=== PATIENT | male | born 1960 | race Two or more races ===

== ENCOUNTER 2017-07-13 11:41 | Inpatient (IN) | payer OTHER ==
[~2017-07-13] VITALS: Ht 175.3 cm; Wt 83.3 kg
[2017-07-13] MEDS ORDERED: CLINDAMYCIN PMX 600MG/50ML 50 ML IVPB ONE (12:30)
[2017-07-13] MEDS ORDERED: SODIUM CHLORIDE FLUSH 10ML SYR IVF ONE (12:30)
[2017-07-13] MEDS ORDERED: SODIUM CHLORIDE 0.9% 1,000ML IVBOLUS ONE ×2 (12:30→17:30)
[2017-07-13] MEDS ORDERED: CLINDAMYCIN PMX 600MG/50ML 50 ML ONE (12:32)
[2017-07-13 12:33] LABS: BASOPHILS # (AUTO) 0.02 x10^3/uL (0-0.1); BASOPHILS % (AUTO) 0 % (0-1); EOSINOPHILS # (AUTO) 0.17 x10^3/uL (0-0.4); EOSINOPHILS % (AUTO) 3 % (1-7); LYMPHOCYTES % (AUTO) 31 % (22-44); MD NO; MEAN CORPUSCULAR HEMOGLOBIN 30.2 pg (27.5-34.5); MEAN CORPUSCULAR HGB CONC 33.6 g/dL (33.2-36.2); MEAN CORPUSCULAR VOLUME 89.7 fL (81-97); MONOCYTES # (AUTO) 0.84 x10^3/uL (0.2-0.8); MONOCYTES % (AUTO) 14 % (2-9); NEUTROPHILS # (AUTO) 3.25 x10^3/uL (1.8-6.8); NEUTROPHILS % (AUTO) 53 % (42-75); PLATELET COUNT 197 x10^3/uL (130-400); RED BLOOD COUNT 5.33 x10^6/uL (4.38-5.82); RED CELL DISTRIBUTION WIDTH 14.7 % (9.4-14.8)
[2017-07-13 12:46] LABS: ALANINE AMINOTRANSFERASE 42 U/L (12-78); ALBUMIN 3.6 g/dL (3.4-5.0); ANION GAP 12 mmol/L (5-15); CALCIUM 9.5 mg/dL (8.5-10.1); CHLORIDE 101 mmol/L (98-107); CREATININE 1.33 mg/dL (0.7-1.3)
[2017-07-13 12:48] LABS: ALKALINE PHOSPHATASE 130 U/L (45-117); BILIRUBIN,TOTAL 0.8 mg/dL (0.2-1.0); TOTAL PROTEIN 9.5 g/dL (6.4-8.2)
[2017-07-13] MEDS ORDERED: POTASSIUM CHLORIDE 20 MEQ TAB.ER.PRT PO ONE (14:00)
[2017-07-13] MEDS ORDERED: SODIUM CHLORIDE 0.9%, 500ML IVBOLUS ONE (14:00)
[2017-07-13] MEDS ORDERED: LORazepam 2 MG/ML, 1ML IVPush ONE (14:30)
[2017-07-13] MEDS ORDERED: POLYETHYLENE GLYCOL 17 GM PACKET PO PRN (15:00)
[2017-07-13] MEDS ORDERED: THIAMINE 100 MG, MVI ADULT 10 ML, FOLIC ACID 1 MG in D5%-0.9% NACL 1,000 ML IV SCH (15:00)
[2017-07-13] MEDS ORDERED: DIPHENHYDRAMINE 25 MG CAPSULE PO PRN (15:00)
[2017-07-13] MEDS ORDERED: LABETALOL 5MG/ML, 20ML IVPush PRN (15:00)
[2017-07-13] MEDS ORDERED: DOCUSATE 100 MG CAPSULE PO PRN (15:00)
[2017-07-13] MEDS ORDERED: VANCOMYCIN PER PHARMACY MC PRN (15:00)
[2017-07-13] MEDS ORDERED: ENALAPRILAT 1.25 MG/ML, 2ML IVPush PRN (15:00)
[2017-07-13] MEDS ORDERED: ONDANSETRON ODT 4 MG PO PRN (15:00)
[2017-07-13] MEDS ORDERED: BISACODYL 10 MG SUPP PR PRN (15:00)
[2017-07-13] MEDS ORDERED: ACETAMINOPHEN 325 MG TABLET PO PRN (15:00)
[2017-07-13] MEDS ORDERED: ONDANSETRON 2MG/ML, 2ML IVPush PRN (15:00)
[2017-07-13] MEDS: THIAMINE 100 MG, MVI ADULT 10 ML, FOLIC ACID 1 MG in D5%-0.9% NACL 1,000 ML IV SCH (15:26)
[2017-07-13 15:32] LABS: HEMOGLOBIN A1C 9.3 % (4.2-6.3)
[2017-07-13] MEDS ORDERED: BACITRACIN ZINC OINT 500U/GM, 0.9 GM ONE (15:41)
[2017-07-13] MEDS ORDERED: POTASSIUM CHLORIDE 20 MEQ TAB.ER.PRT ONE (15:44)
[2017-07-13] MEDS ORDERED: LORazepam 2 MG/ML, 1ML ONE (15:44)
[2017-07-13 16:12] VITALS: BP 134/98
[2017-07-13] MEDS ORDERED: PHARMACOKINETIC MONITORING MC PRN (16:30)
[2017-07-13] MEDS ORDERED: VANCOMYCIN 1,200 MG in SODIUM CHLORIDE 0.9% 250 ML IV SCH (16:30)
[2017-07-13] MEDS ORDERED: LORazepam 2 MG/ML, 1ML IVPush PRN (17:30)
[2017-07-13] MEDS: INSULIN LISPRO 100 UNITS/ML, PEN SQ-INSULIN SCH ×2 (17:36→22:13)
[2017-07-13] MEDS: ATENOLOL 50 MG TABLET PO SCH (18:03)
[2017-07-13] MEDS: LEVOTHYROXINE 25 MCG TABLET PO SCH (18:04)
[2017-07-13 20:00] VITALS: BP 119/77
[2017-07-13 21:39] LABS: CULTURE INDICATED? NO; MICROSCOPIC AUTO
[2017-07-13] MEDS: AMPICILLIN/SULBACTAM 3 GM in SODIUM CHLORIDE 0.9% 100 ML IV SCH (22:13)
[2017-07-14 02:47] VITALS: BP 134/94
[2017-07-14 04:54] LABS: BASOPHILS # (AUTO) 0.05 x10^3/uL (0-0.1); BASOPHILS % (AUTO) 1 % (0-1); EOSINOPHILS # (AUTO) 0.25 x10^3/uL (0-0.4); EOSINOPHILS % (AUTO) 4 % (1-7); LYMPHOCYTES # (AUTO) 2.05 x10^3/uL (1-3.4); LYMPHOCYTES % (AUTO) 36 % (22-44); MD NO; MEAN CORPUSCULAR HEMOGLOBIN 29.6 pg (27.5-34.5); MEAN CORPUSCULAR HGB CONC 33.2 g/dL (33.2-36.2); MEAN CORPUSCULAR VOLUME 89.2 fL (81-97); MEAN PLATELET VOLUME 8.2 fL (7.4-10.4); MONOCYTES # (AUTO) 1.04 x10^3/uL (0.2-0.8); MONOCYTES % (AUTO) 18 % (2-9); NEUTROPHILS # (AUTO) 2.34 x10^3/uL (1.8-6.8); NEUTROPHILS % (AUTO) 41 % (42-75); PLATELET COUNT 153 x10^3/uL (130-400); RED BLOOD COUNT 3.98 x10^6/uL (4.38-5.82); RED CELL DISTRIBUTION WIDTH 14.9 % (9.4-14.8)
[2017-07-14] MEDS: LEVOTHYROXINE 25 MCG TABLET PO SCH (04:58)
[2017-07-14] MEDS: ATENOLOL 50 MG TABLET PO SCH ×2 (04:58→17:17)
[2017-07-14] MEDS: AMPICILLIN/SULBACTAM 3 GM in SODIUM CHLORIDE 0.9% 100 ML IV SCH ×4 (04:59→22:12)
[2017-07-14 05:03] LABS: ALBUMIN 2.4 g/dL (3.4-5.0); ANION GAP 8 mmol/L (5-15); CALCIUM 7.6 mg/dL (8.5-10.1); CHLORIDE 103 mmol/L (98-107)
[2017-07-14 05:12] LABS: ALANINE AMINOTRANSFERASE 24 U/L (12-78); ALKALINE PHOSPHATASE 92 U/L (45-117); BILIRUBIN,TOTAL 1.2 mg/dL (0.2-1.0); CHOL/HDL RATIO 2.9; CHOLESTEROL, TOTAL 119 mg/dL (140-239); CREATININE 1.29 mg/dL (0.7-1.3); HDL CHOL % 34 % (26-37); HDL CHOLESTEROL (DIRECT) 41 mg/dL (40-60); LDL CHOLESTEROL,CALCULATED 57 mg/dL (54-169); LDL/HDL RATIO 1.4 (0.5-3.0); TOTAL PROTEIN 6.9 g/dL (6.4-8.2); TRIGLYCERIDES 106 mg/dL (50-200); VLDL CHOLESTEROL 21 mg/dL (0-25)
[2017-07-14] MEDS ORDERED: MAGNESIUM SULFATE PMX 4GM/100M 100 ML IVPB ONE (06:00)
[2017-07-14] MEDS ORDERED: MAGNESIUM SULFATE PMX 2GM/50ML 50 ML IV ONE (07:00)
[2017-07-14] MEDS: SENNA/DOCUSATE TABLET PO SCH (08:30)
[2017-07-14] MEDS: INSULIN LISPRO 100 UNITS/ML, PEN SQ-INSULIN SCH ×4 (08:31→20:31)
[2017-07-14 10:45] VITALS: BP 139/84
[2017-07-14] MEDS ORDERED: VANCOMYCIN 1,600 MG in SODIUM CHLORIDE 0.9% 250 ML IV SCH (12:00)
[2017-07-14 12:29] LABS: % IRON SATURATION 39 % (20-55); IRON LEVEL 111 mcg/dL (65-175); TOTAL IRON BINDING CAPACITY 288 mcg/dL (250-450)
[2017-07-14 13:15] VITALS: BP 148/87
[2017-07-14] MEDS: ENOXAPARIN 40 MG/0.4 ML SQ SCH (16:44)
[2017-07-14] MEDS: THIAMINE 100 MG, MVI ADULT 10 ML, FOLIC ACID 1 MG in D5%-0.9% NACL 1,000 ML IV SCH (16:44)
[2017-07-14 17:10] VITALS: BP 130/76
[2017-07-14 19:24] VITALS: BP 149/83
[2017-07-15 02:09] VITALS: BP 127/76
[2017-07-15] MEDS: AMPICILLIN/SULBACTAM 3 GM in SODIUM CHLORIDE 0.9% 100 ML IV SCH ×4 (03:35→22:32)
[2017-07-15] MEDS: LEVOTHYROXINE 25 MCG TABLET PO SCH (05:52)
[2017-07-15] MEDS: ATENOLOL 50 MG TABLET PO SCH ×2 (05:52→18:20)
[2017-07-15 06:47] VITALS: BP 156/81
[2017-07-15] MEDS: INSULIN LISPRO 100 UNITS/ML, PEN SQ-INSULIN SCH ×4 (07:00→20:45)
[2017-07-15] MEDS: SENNA/DOCUSATE TABLET PO SCH (07:56)
[2017-07-15] MEDS ORDERED: VANCOMYCIN PER PHARMACY MC PRN (11:30)
[2017-07-15] MEDS ORDERED: PHARMACOKINETIC MONITORING MC PRN (12:00)
[2017-07-15] MEDS: VANCOMYCIN 1,400 MG in SODIUM CHLORIDE 0.9% 250 ML IV SCH (12:15)
[2017-07-15 13:10] VITALS: BP 156/87
[2017-07-15] MEDS: THIAMINE 100 MG, MVI ADULT 10 ML, FOLIC ACID 1 MG in D5%-0.9% NACL 1,000 ML IV SCH (17:44)
[2017-07-15] MEDS: ENOXAPARIN 40 MG/0.4 ML SQ SCH (17:52)
[2017-07-15 19:20] VITALS: BP 160/84
[2017-07-16] MEDS: VANCOMYCIN 1,400 MG in SODIUM CHLORIDE 0.9% 250 ML IV SCH (00:14)
[2017-07-16 01:30] VITALS: BP 152/84
[2017-07-16] MEDS: AMPICILLIN/SULBACTAM 3 GM in SODIUM CHLORIDE 0.9% 100 ML IV SCH ×2 (03:56→10:21)
[2017-07-16] MEDS: ATENOLOL 50 MG TABLET PO SCH (06:02)
[2017-07-16] MEDS: LEVOTHYROXINE 25 MCG TABLET PO SCH (06:02)
[2017-07-16 07:56] VITALS: BP 138/83
[2017-07-16] MEDS: INSULIN LISPRO 100 UNITS/ML, PEN SQ-INSULIN SCH ×2 (08:40→11:46)
[2017-07-16] MEDS: SENNA/DOCUSATE TABLET PO SCH (08:54)
[2017-07-16] MEDS ORDERED: LINE600T7 PO (13:20)
[2017-07-16] MEDS ORDERED: CEFD300C37 PO (13:20)
[2017-07-16] MEDS ORDERED: VANCOMYCIN 1,400 MG in SODIUM CHLORIDE 0.9% 250 ML IV SCH (18:00)
[2017-07-16] MEDS ORDERED: CEFDINIR 300 MG CAPSULE PO SCH (21:00)
[2017-07-16] MEDS ORDERED: LINEZOLID 600 MG TABLET PO SCH (21:00)
== END 2017-07-16 15:24 | disposition home or self-care (01) | DRG 872 ==
LOC: ED 13:14 → EDIP 13:43 → 5SO 16:02 → 3NE 07-14 17:34
PROVIDERS: ADMIT Internal Medicine; ATTEND Internal Medicine
DX: A41.9 Sepsis, unspecified organism (principal); N17.9 Acute kidney failure, unspecified; E11.621 Type 2 diabetes mellitus with foot ulcer; E11.65 Type 2 diabetes mellitus with hyperglycemia; F10.239 Alcohol dependence with withdrawal, unspecified; E87.1 Hypo-osmolality and hyponatremia; L97.519 Non-pressure chronic ulcer of other part of right foot with unspecified severity; I10 Essential (primary) hypertension; E87.6 Hypokalemia; R55 Syncope and collapse; E03.9 Hypothyroidism, unspecified; E78.5 Hyperlipidemia, unspecified; I35.8 Other nonrheumatic aortic valve disorders; I45.10 Unspecified right bundle-branch block; M14.679 Charcot's joint, unspecified ankle and foot; Y90.6 Blood alcohol level of 120-199 mg/100 ml; Z79.4 Long term (current) use of insulin; Z82.49 Family history of ischemic heart disease and other diseases of the circulatory system; J30.2 Other seasonal allergic rhinitis; Z79.82 Long term (current) use of aspirin; Z79.899 Other long term (current) drug therapy
CPT/HCPCS: 36415; 71045; 80053; 80061; 80307; 81001; 82962; 83036; 83540; 83550; 83605; 83690; 83735; 84100; 84439; 84443; 85025; 87040; 87070; 87077; 87186; 87205; 93005; 93306; 96374; J0295; J1650; J3370; J3411; J7042; J1815; J2060; J3475; J7030; J7050